=== PATIENT | female | born 1960 | race Caucasian/White ===

== ENCOUNTER 2016-09-30 03:31 | Emergency (ER) | payer OTHER ==
[~2016-09-30] VITALS: Ht 157.5 cm; Wt 88.0 kg
[2016-09-30 03:34] VITALS: Ht 157.5 cm; Wt 88.0 kg
[2016-09-30] MEDS ORDERED: ONDANSETRON (ODT) 4 MG TAB ODT STA (06:45)
[2016-09-30] MEDS ORDERED: IBUP-1542 PO (06:51)
[2016-09-30] MEDS ORDERED: IBUPROFEN 800 MG TAB PO ONE (07:00)
--- NOTE | 2016-09-30 09:22 | ERD ---
DATE OF SERVICE: HISTORY OF PRESENT ILLNESS: The patient is a 55-year-old female coming in complaining of anxiety an d headache that started earlier in the evening. Patient was at work. She works in a kitchen. She states she went into the freezer to get a tub of ice cream, and the freezer door closed on her and the lights went off. She states that instantly she felt a schmidt of stress and anxiety. She feels th at all her symptoms are related to anxiety, and she is not taking medications for her symptoms. She said that she has been waiting to be seen, and her symptoms have been improving; however, she wante d to be evaluated. Denies any chest pain or shortness of breath. No loss of consciousness. No vom iting. No abdominal pain. MEDICAL PROBLEMS: Denies. ALLERGIES TO MEDICATIONS: Denies. SURGICAL HISTORY: . SOCIAL HISTORY: Appendectomy. REVIEW OF SYSTEMS: A 12-point review of systems was done. Refer to HPI for positives, all other sy stems negative. PHYSICAL EXAMINATION VITAL SIGNS: Temperature is 97.8, pulse 89, blood pressure is 148/66, respiratory 17, O2 saturation 98% on room air. Pain intensity 8/10. GENERAL: The patient is well-appearing, well-nourished, no acute distress. HEART: Regular rate and rhythm. No murmurs, clicks, rubs or gallops. No S3 or S4. CHEST: Clear to auscultation bilaterally. There are no rales, wheezes or rhonchi. HEENT: Atraumatic. Conjunctivae are pink. Pupils equal, round, and reactive to light. There is no s cleral icterus. Tympanic membranes clear bilaterally. Oropharynx clear. No nystagmus or photophobia . ABDOMEN: Soft, nontender and nondistended. Good bowel sounds. No rebound or guarding. No gross alan tonitis. No gross organomegaly or masses. No Gonzalez sign or McBurney point tenderness. SKIN: There is no apparent rash or petechia. The skin is warm and dry. NEURO: Alert and oriented. Cranial nerves 2-12 intact. Motor strength in all 4 extremities with 5/5 strength. Sensation grossly intact. Normal speech and gait. Babinski negative. DTR 2+ throughout. DIAGNOSES: 1. Headache. 2. Possible anxiety reaction. MEDICAL DECISION MAKING: Patient's neuro exam is within normal limits. Patient's symptoms were dir ectly related to anxiety-provoking incident; however, I did not feel that there were any residual de ficits. ER COURSE: Patient given ibuprofen and Zofran in the ER. DISCHARGE: The patient is discharged stable. Patient is given a prescription for ibuprofen and kip d to follow up with primary care within 1 to 2 days for reevaluation. Patient was told if symptoms progress or worsen to return to the ER. All other questions answered at time of discharge. Dischar ge summary given at the time of departure. Patient understood and complied with plan. Dictated By: BRYANT COTTRELL for ETHAN FUNES/PILO Conf#: [id number] DID#: [id number]
== END 2016-09-30 07:05 | disposition home or self-care (01) ==
LOC: FTE 03:31
DX: R51 Headache (principal)
CPT/HCPCS: 99283